=== PATIENT | male | born 1955 | race Caucasian/White ===

== ENCOUNTER → 2020-12-15 | Outpatient (CLI) | payer MEDICARE ==
--- NOTE | 2020-12-15 15:19 | XR ---
EXAMINATION TYPE: XR Hip Complete LT DATE OF EXAM: 12/15/2020 COMPARISON: None HISTORY: Pain TECHNIQUE: 2 view left hip FINDINGS: Femoral head articulates with the acetabulum. No acute fracture or dislocation is evident. IMPRESSION: 1. Normal 2 view left hip
== END | disposition home or self-care (01) ==
LOC: RADXRMAIN 14:59
PROVIDERS: ATTEND Nurse Practitioner Family
DX: M25.552 Pain in left hip (principal)
CPT/HCPCS: 73502

== ENCOUNTER → 2021-09-09 | Outpatient (CLI) | payer MEDICARE ==
[2021-09-09 16:19] LABS: African American GFR (CKD) >90 (>60 ml/min/1.73 sqM); Blood Urea Nitrogen 15 mg/dL (9-20); Non-African American GFR(CKD) 82 (>60 ml/min/1.73 sqM)
--- NOTE | 2021-09-09 16:53 | CT ---
EXAMINATION TYPE: CT chest w con DATE OF EXAM: 09/09/2021 COMPARISON: None HISTORY: h/o aneurysm CT DLP: 895.5 mGycm Automated exposure control for dose reduction was used. TECHNIQUE: CT scan of the chest is performed with IV Contrast, patient injected with 100 mL of Isovue 300. MIP Images are created on CT scanner and reviewed. 3D reconstructed images are created on an independent workstation and reviewed. FINDINGS: The lungs are clear of consolidative or interstitial density. There are 2 left lower lobe calcified g ranulomas one measuring 7.2 mm and the other measuring approximately 8 mm. There are no suspicious shon ng masses or nodules. The great vessels chest are normal and there is no evidence of aneurysm of the thoracic aorta. There is no mediastinal, hilar or axillary adenopathy. There is no pleural effusion, pleural thickening or pneumothorax. Limited scanning through the upper abdomen reveals no gross abnormality. The osseous structures are intact. IMPRESSION: No significant abnormality seen. 2 densely calcified granulomas in the left lower lobe. No thoracic a ortic aneurysm.
== END | disposition home or self-care (01) ==
LOC: RADCTMAIN 15:30
PROVIDERS: ATTEND Family Medicine
DX: J84.10 Pulmonary fibrosis, unspecified (principal)
CPT/HCPCS: 82565; 84520; 71260; 36415; Q9967

== ENCOUNTER → 2023-01-25 | Outpatient (CLI) | payer MEDICARE ==
[2023-01-25 10:45] VITALS: BP 145/90; PULSE 83; RESP 16; TEMP 97.9
--- NOTE | 2023-01-25 14:38 | P.PAINPG ---
PQRS Measure Charge Sheet Comment: HISTORY OF PRESENT ILLNESS: A 67 yr old male as a referral from Dr Tj Gonzalez presents today w severe and chronic LBP x 8 yrs secondary to post laminectomy syndrome for evaluation. Pt states pain level is provoked at 9/10 in intensity, constant, localized in the lumbar spine, sharp in character w shooting pain towards the BL hips. Pain is provoked by lifting. Pain is alleviated by medications (Tramadol, Ibu), hot showers, repositioning and rest. PMH: OA, CHF, Hyperlipidemia, HTN, Gout PSH: Coronary Bypass/CABG, Lumbar surgery w L1-S1 hardware SH: Former tobacco user, No ETOH abuse, No illicit drug use FH: Non contributory All: See list Meds: See list REVIEW OF ORGAN SYSTEMS: CONSTITUTIONAL: No fevers or chills. No recent weight loss. NEUROLOGICAL: + numbness and tingling along the distal extremities. No seizure disorders or headaches. MUSCULOSKELETAL: + pain PSYCHIATRIC: Denies current depression or suicidal thoughts. Physical Examinations : Constitutional : Cooperative , not in acute distress . Neurologic : Cranial nerve II to XII intact. No focal neurological deficits. Psychiatric : alert & oriented x 3. Matching mood & appropriate affect. Judgment & insight intact. Musculoskeletal : Cervical Spine Motor strength in the deltoid and biceps: Normal right side. Normal Left side Motor strength biceps and the wrist extensors: Normal right side . Normal left side Motor strength in the triceps muscle: Normal right side. Normal left side Deep tendon reflexes: Normal at the biceps. Normal at Brachioradialis. Normal at triceps Vertebral body tenderness to deep palpation over Cervical facet loading test: positive bilaterally Spurling test: positive bilaterally Neck distraction test: positive bilaterally To sign: positive bilaterally Lumbar spine Incisional scar intact Motor strength lower extremities ,thigh and legs 5/5 Right side , 5/5 Left side Deep tendon reflexes : Normal Knee Jerk. Normal Ankle Jerk Vertebral body tenderness over L2, L3, L4, L5 Rubio Test positive Lumbar facet Loading Test: positive Right / positive Left Range of motion of the lumbar spine Flexion 30 degrees, extension 10 degrees Straight Leg Raise test: Left/ Right positive at degree Luann test: positive right / positive left. Severe tenderness over the Sacroiliac joint on the Right / Left sides Gaenslen test: positive bilaterally Seated flexion test: positive bilaterally. Sacral spine : Severe tenderness over the Sacroiliac joint: right side / left side Range of motion: Flexion of the lumbar spine <60 degrees Range of motion: Extension of the lumbar spine <20 degrees Gaenslen's Test positive BL Ras's Test positive Luann test: positive right side / left side Thigh Thrust Test Sacral Thrust Test Imaging: MRI non contrast of the lumbar spine from 04/21/21 reviewed Assessment/ Plan : Post laminectomy syndrome Recommendation of medication management. Tramadol 50mg #90 w 1 RF. Use, side effects, adverse reactions and safe storage discussed. Opiate/ narcotic agreement signed 01/25/23. Urged compliance w refraining from ETOH and cannabis with medication. Pt acknowledged understanding. All questions answered. I have spent greater than 30 minutes on patient care today. Dr Valdivia was available by phone for the evaluation of this patient. The time was used to review the medical records including relevant urine studies and Prescription history (MAPs), review of the available imaging, evaluation and examination of the patient, coordination of care with the medical staff and if applicable referring physicians, as well as creation of the medical record PQRS Narrative: Smoking Status Former smoker Home Medications: Ambulatory Orders Aspirin 1 tab PO DAILY 02/06/14 Clopidogrel [Plavix] 1 tab PO DAILY 02/06/14 Isosorbide Mononitrate [Imdur] 1 tab PO DAILY 02/06/14 Indomethacin [Indocin] 50 mg PO DAILY 12/25/14 Orphenadrine [Norflex] 100 mg PO Q12H #10 tablet.er 12/25/14 dexAMETHasone [Decadron] 0.75 mg PO DAILY #12 tablet 12/25/14 traMADol HCL 50 mg PO TID PRN 30 Days #90 tab 01/25/23 Controlled Substance Measures - Controlled Substance Measures Is patient prescribed a controlled substance at discharge?: Yes When asked, does pt state using other controlled substances?: No If prescribed controlled substance>3 days was MAPS reviewed?: Yes If Rx opioid, was Start Talking consent form obtained?: Yes Was information provided regarding opioid addiction?: Yes
== END ==
LOC: PNWHC3 09:29
PROVIDERS: ATTEND Specialist
DX: M48.061 Spinal stenosis, lumbar region without neurogenic claudication (principal); M96.1 Postlaminectomy syndrome, not elsewhere classified; M19.90 Unspecified osteoarthritis, unspecified site; E78.5 Hyperlipidemia, unspecified; M10.9 Gout, unspecified; I11.0 Hypertensive heart disease with heart failure; I50.9 Heart failure, unspecified; Z87.891 Personal history of nicotine dependence; Z79.82 Long term (current) use of aspirin; Z88.8 Allergy status to other drugs, medicaments and biological substances
CPT/HCPCS: 99211

== ENCOUNTER → 2023-03-22 | Outpatient (CLI) | payer MEDICARE ==
[2023-03-22 12:15] VITALS: BP 115/79; PULSE 87; RESP 15; TEMP 98.2
--- NOTE | 2023-03-22 15:34 | P.PAINPG ---
PQRS Measure Charge Sheet Comment: HISTORY OF PRESENT ILLNESS: A 67 yr old male presents today w severe and chronic LBP x 8 yrs secondary to post laminectomy syndrome for medication refills. Pt states pain level is provoked at 9/10 in intensity, constant, localized in the lumbar spine, sharp in character w shooting pain towards the BL hips. Pain is provoked by lifting. Pain is alleviated by medications, hot showers, repositioning and rest. Interventional procedures include Medications include Tramadol, Ibu REVIEW OF ORGAN SYSTEMS: CONSTITUTIONAL: No fevers or chills. No recent weight loss. NEUROLOGICAL: + numbness and tingling along the distal extremities. No seizure disorders or headaches. MUSCULOSKELETAL: + pain PSYCHIATRIC: Denies current depression or suicidal thoughts. Physical Examinations : Constitutional : Cooperative , not in acute distress . Neurologic : Cranial nerve II to XII intact. No focal neurological deficits. Psychiatric : alert & oriented x 3. Matching mood & appropriate affect. Judgment & insight intact. Musculoskeletal : Cervical Spine Motor strength in the deltoid and biceps: Normal right side. Normal Left side Motor strength biceps and the wrist extensors: Normal right side . Normal left side Motor strength in the triceps muscle: Normal right side. Normal left side Deep tendon reflexes: Normal at the biceps. Normal at Brachioradialis. Normal at triceps Vertebral body tenderness to deep palpation over Cervical facet loading test: positive bilaterally Spurling test: positive bilaterally Neck distraction test: positive bilaterally To sign: positive bilaterally Lumbar spine vertical chest wall Incisional scar intact Motor strength lower extremities ,thigh and legs 5/5 Right side , 5/5 Left side Deep tendon reflexes : Normal Knee Jerk. Normal Ankle Jerk Vertebral body tenderness over L2, L3, L4, L5 Rubio Test positive Lumbar facet Loading Test: positive Right / positive Left Range of motion of the lumbar spine Flexion 30 degrees, extension 10 degrees Straight Leg Raise test: Left/ Right positive at degree Luann test: positive right / positive left. Severe tenderness over the Sacroiliac joint on the Right / Left sides Gaenslen test: positive bilaterally Seated flexion test: positive bi laterally. Sacral spine : Severe tenderness over the Sacroiliac joint: right side / left side Range of motion: Flexion of the lumbar spine <60 degrees Range of motion: Extension of the lumbar spine <20 degrees Gaenslen's Test positive BL Ras's Test positive Luann test: positive right side / left side Thigh Thrust Test Sacral Thrust Test Imaging: MRI non contrast of the lumbar spine from 04/21/21 reviewed Assessment/ Plan : Post laminectomy syndrome Recommendation of medication management. Tramadol 50mg #90 w 1 RF. Use, side effects, adverse reactions and safe storage discussed. Opiate/ narcotic ag reement signed 01/25/23. Pt acknowledged understanding. All questions answered. I have spent greater than 30 minutes on patient care today. Dr Valdivia was available by phone for the evaluation of this patient. The time was used to review the medical records including relevant urine studies and Prescription history (MAPs), review of the available imaging, evaluation and examination of the patient, coordination of care with the medical staff and if applicable referring physicians, as well as creation of the medical record PQRS Narrative: Smoking Status Former smoker Home Medications: Ambulatory Orders Aspirin 1 tab PO DAILY 02/06/14 Clopidogrel [Plavix] 1 tab PO DAILY 02/06/14 Isosorbide Mononitrate [Imdur] 1 tab PO DAILY 02/06/14 Indomethacin [Indocin] 50 mg PO DAILY 12/25/14 Orphenadrine [Norflex] 100 mg PO Q12H #10 tablet.er 12/25/14 dexAMETHasone [Decadron] 0.75 mg PO DAILY #12 tablet 12/25/14 traMADol HCL 50 mg PO TID PRN 30 Days #90 tab 03/22/23 Controlled Substance Measures - Controlled Substance Measures Is patient prescribed a controlled substance at discharge?: Yes When asked, does pt state using other controlled substances?: No If prescribed controlled substance>3 days was MAPS reviewed?: Yes
== END ==
LOC: PNWHC3 09:23
PROVIDERS: ATTEND Specialist
DX: M96.1 Postlaminectomy syndrome, not elsewhere classified (principal); Z88.5 Allergy status to narcotic agent; Z87.891 Personal history of nicotine dependence
CPT/HCPCS: 99211

== ENCOUNTER → 2023-05-17 | Outpatient (CLI) | payer MEDICARE ==
[2023-05-17 13:35] VITALS: BP 156/84; PULSE 77; RESP 16
--- NOTE | 2023-05-17 14:23 | P.PAINPG ---
PQRS Measure Charge Sheet Comment: HISTORY OF PRESENT ILLNESS: A 67 yr old male presents today w severe and chronic LBP x 8 yrs secondary to post laminectomy syndrome for medication refills. Pt states pain level is provoked at 9/10 in intensity, constant, localized in the lumbar spine, sharp in character w shooting pain towards the BL hips. Pain is provoked by lifting. Pain is alleviated by medications, hot showers, repositioning and rest. Interventional procedures include Medications include Tramadol, Ibu REVIEW OF ORGAN SYSTEMS: CONSTITUTIONAL: No fevers or chills. No recent weight loss. NEUROLOGICAL: + numbness and tingling along the distal extremities. No seizure disorders or headaches. MUSCULOSKELETAL: + pain PSYCHIATRIC: Denies current depression or suicidal thoughts. Physical Examinations : Constitutional : Cooperative , not in acute distress . Neurologic : Cranial nerve II to XII intact. No focal neurological deficits. Psychiatric : alert & oriented x 3. Matching mood & appropriate affect. Judgment & insight intact. Musculoskeletal : Cervical Spine Motor strength in the deltoid and biceps: Normal right side. Normal Left side Motor strength biceps and the wrist extensors: Normal right side . Normal left side Motor strength in the triceps muscle: Normal right side. Normal left side Deep tendon reflexes: Normal at the biceps. Normal at Brachioradialis. Normal at triceps Vertebral body tenderness to deep palpation over Cervical facet loading test: positive bilaterally Spurling test: positive bilaterally Neck distraction test: positive bilaterally To sign: positive bilaterally Lumbar spine vertical chest wall Incisional scar intact Motor strength lower extremities ,thigh and legs 5/5 Right side , 5/5 Left side Deep tendon reflexes : Normal Knee Jerk. Normal Ankle Jerk Vertebral body tenderness over L2, L3, L4, L5 Rubio Test positive Lumbar facet Loading Test: positive Right / positive Left Range of motion of the lumbar spine Flexion 30 degrees, extension 10 degrees Straight Leg Raise test: Left/ Right positive at degree Luann test: positive right / positive left. Severe tenderness over the Sacroiliac joint on the Right / Left sides Gaenslen test: positive bilaterally Seated flexion test: positive bi laterally. Sacral spine : Severe tenderness over the Sacroiliac joint: right side / left side Range of motion: Flexion of the lumbar spine <60 degrees Range of motion: Extension of the lumbar spine <20 degrees Gaenslen's Test positive BL Ras's Test positive Luann test: positive right side / left side Thigh Thrust Test Sacral Thrust Test Imaging: MRI non contrast of the lumbar spine from 04/21/21 reviewed Assessment/ Plan : Post laminectomy syndrome Recommendation of medication management. Tramadol 50mg #90 w 2 RF. Use, side effects, adverse reactions and safe storage discussed. Opiate/ narcotic ag reement signed 01/25/23. Pt acknowledged understanding. All questions answered. I have spent greater than 30 minutes on patient care today. Dr Valdivia was available by phone for the evaluation of this patient. The time was used to review the medical records including relevant urine studies and Prescription history (MAPs), review of the available imaging, evaluation and examination of the patient, coordination of care with the medical staff and if applicable referring physicians, as well as creation of the medical record PQRS Narrative: Smoking Status Former smoker Hx Alcohol Use (MH) No Home Medications: Ambulatory Orders Aspirin 1 tab PO DAILY 02/06/14 Clopidogrel [Plavix] 1 tab PO DAILY 02/06/14 Isosorbide Mononitrate [Imdur] 1 tab PO DAILY 02/06/14 Indomethacin [Indocin] 50 mg PO DAILY 12/25/14 Orphenadrine [Norflex] 100 mg PO Q12H #10 tablet.er 12/25/14 dexAMETHasone [Decadron] 0.75 mg PO DAILY #12 tablet 12/25/14 traMADol HCL 50 mg PO TID PRN 30 Days #90 tab 05/17/23 Controlled Substance Measures - Controlled Substance Measures Is patient prescribed a controlled substance at discharge?: Yes When asked, does pt state using other controlled substances?: No If prescribed controlled substance>3 days was MAPS reviewed?: Yes
== END ==
LOC: PNWHC3 10:26
PROVIDERS: ATTEND Specialist
DX: M96.1 Postlaminectomy syndrome, not elsewhere classified (principal); Z87.891 Personal history of nicotine dependence; Z79.82 Long term (current) use of aspirin; Z88.8 Allergy status to other drugs, medicaments and biological substances
CPT/HCPCS: 80307; G0463; 99212

== ENCOUNTER → 2023-08-09 | Outpatient (CLI) | payer MEDICARE ==
[2023-08-09 11:43] VITALS: BP 142/82; PULSE 71; RESP 15; TEMP 98.5
--- NOTE | 2023-08-09 15:07 | P.PAINPG ---
Objective - Vital Signs Vital signs: Intake & Output 08/08/23 08/09/23 08/09/23 18:59 06:59 18:59 Weight 122.47 kg PQRS Measure Charge Sheet Comment: HISTORY OF PRESENT ILLNESS: A 68 yr old male presents today w severe and chronic LBP >5 yrs secondary to post laminectomy syndrome for medication refills. Pt states pain level is provoked at 3 /10 in intensity, constant, localized in the lumbar spine, sharp in character w shooting pain occasionally towards the BL hips. Pain is provoked by lifting. Pain is alleviated by medications, hot showers, repositioning and rest. Interventional procedures include Medications include Tramadol, Ibu REVIEW OF ORGAN SYSTEMS: CONSTITUTIONAL: No fevers or chills. No recent weight loss. NEUROLOGICAL: + numbness and tingling along the distal extremities. No seizure disorders or headaches. MUSCULOSKELETAL: + pain PSYCHIATRIC: Denies current depression or suicidal thoughts. Physical Examinations : Constitutional : Cooperative , not in acute distress . Neurologic : Cranial nerve II to XII intact. No focal neurological deficits. Psychiatric : alert & oriented x 3. Matching mood & appropriate affect. Judgment & insight intact. Musculoskeletal : Cervical Spine Motor strength in the deltoid and biceps: Normal right side. Normal Left side Motor strength biceps and the wrist extensors: Normal right side . Normal left side Motor strength in the triceps muscle: Normal right side. Normal left side Deep tendon reflexes: Normal at the biceps. Normal at Brachioradialis. Normal at triceps Vertebral body tenderness to deep palpation over Cervical facet loading test: positive bilaterally Spurling test: positive bilaterally Neck distraction test: positive bilaterally To sign: positive bilaterally Lumbar spine vertical chest wall Incisional scar intact Motor strength lower extremities ,thigh and legs 5/5 Right side , 5/5 Left side Deep tendon reflexes : Normal Knee Jerk. Normal Ankle Jerk Vertebral body tenderness over L2, L3, L4, L5 Rubio Test positive Lumbar facet Loading Test: positive Right / positive Left Range of motion of the lumbar spine Flexion 30 degrees, extension 10 degrees Straight Leg Raise test: Left/ Right positive at degree Luann test: positive right / positive left. Severe tenderness over the Sacroiliac joint on the Right / Left sides Gaenslen test: positive bilaterally Seated flexion test: positive bilaterally. Sacral spine : Severe tenderness over the Sacroiliac joint: right side / left side Range of motion: Flexion of the lumbar spine <60 degrees Range of motion: Extension of the lumbar spine <20 degrees Gaenslen's Test positive BL Ras's Test positive Luann test: positive right side / left side Thigh Thrust Test Sacral Thrust Test Imaging: MRI non contrast of the lumbar spine from 04/21/21 reviewed Assessment/ Plan : Post laminectomy syndrome Recommendation of medication management. Tramadol 50mg #90 w 2 RF. Use, side effects, adverse reactions and safe storage discussed. Opiate/ narcotic agreement signed 01/25/23. Pt acknowledged understanding. All questions answered. I have spent greater than 30 minutes on patient care today. Dr Valdivia was available by phone for the evaluation of this patient. The time was used to review the medical records including relevant urine studies and Prescription history (MAPs), review of the available imaging, evaluation and examination of the patient, coordination of care with the medical staff and if applicable referring physicians, as well as creation of the medical record PQRS Narrative: Smoking Status Former smoker Hx Alcohol Use (MH) No Home Medications: Ambulatory Orders Aspirin 1 tab PO DAILY 02/06/14 Clopidogrel [Plavix] 1 tab PO DAILY 02/06/14 Isosorbide Mononitrate [Imdur] 1 tab PO DAILY 02/06/14 Indomethacin [Indocin] 50 mg PO DAILY 12/25/14 Orphenadrine [Norflex] 100 mg PO Q12H #10 tablet.er 12/25/14 dexAMETHasone [Decadron] 0.75 mg PO DAILY #12 tablet 12/25/14 traMADol HCL 50 mg PO TID PRN 30 Days #90 tab 05/17/23 Controlled Substance Measures - Controlled Substance Measures Is patient prescribed a controlled substance at discharge?: Yes When asked, does pt state using other controlled substances?: No If prescribed controlled substance>3 days was MAPS reviewed?: Yes
== END ==
LOC: PNWHC3 10:30
PROVIDERS: ATTEND Specialist
DX: M47.816 Spondylosis without myelopathy or radiculopathy, lumbar region (principal); M96.1 Postlaminectomy syndrome, not elsewhere classified; G89.29 Other chronic pain; M54.50 Low back pain, unspecified; Z87.891 Personal history of nicotine dependence; Z88.5 Allergy status to narcotic agent
CPT/HCPCS: 99211

== ENCOUNTER → 2023-08-22 | Outpatient (CLI) | payer MEDICARE ==
--- NOTE | 2023-08-27 14:25 | CT ---
EXAMINATION TYPE: CT brain wo con CT DLP: 1064.3 mGycm, Automated exposure control for dose reduction was used. DATE OF EXAM: 08/22/2023 12:11 PM COMPARISON: . CLINICAL INDICATION:Male, 68 years old with history of R41.3 OTHER AMNESIA, changes in memory TECHNIQUE: Brain: Axial CT images of the brain were obtained with coronal and sagittal reformats created and rev iewed. Contrast used: None. Oral contrast used: None. FINDINGS: Brain: Extra-axial spaces: No abnormal extra-axial fluid collections. Ventricular system: Ventricles and sulci are prominent consistent with age-related involution. Cerebral parenchyma: No acute intraparenchymal hemorrhage or mass effect. The patrick-white junction is well differentiated. Cerebellum: Unremarkable. Mass effect: No evidence of midline shift. Intracranial vasculature: unremarkable Soft tissues: Normal. Calvarium/osseous structures: No depressed skull fracture. Paranasal sinuses and mastoid air cells: Mild scattered paranasal sinus disease. Visualized orbits: Orbital contents are intact. IMPRESSION: No acute intracranial process. Mild age-related involution
== END | disposition home or self-care (01) ==
LOC: RADCTMAIN 11:45
PROVIDERS: ATTEND Family Medicine
DX: R41.81 Age-related cognitive decline (principal); R41.3 Other amnesia
CPT/HCPCS: 70450

== ENCOUNTER → 2023-09-17 | Outpatient (CLI) | payer MEDICARE ==
--- NOTE | 2023-09-17 11:23 | XR ---
EXAMINATION TYPE: XR shoulder limited LT DATE OF EXAM: 09/17/2023 10:26 AM CLINICAL INDICATION:Male, 68 years old with history of M19.079 R shoulder pain; [facility] COMPARISON: None. TECHNIQUE: XR shoulder limited LT; examined in AP, internally rotated and scapular Y projections. FINDINGS: No evidence of acute osseous pathology, joint dislocation, or soft tissue swelling. The remaining po rtions of the visualized chest are unremarkable. IMPRESSION: No acute osseous pathology.
[2023-09-17 13:26] VITALS: BP 158/76; PULSE 63; RESP 16; TEMP 96.9
--- NOTE | 2023-09-17 14:40 | P.PAINPG ---
PQRS Measure Charge Sheet Comment: HISTORY OF PRESENT ILLNESS: A 68 yr old male w at side presents today w severe and chronic L shoulder pain, LBP >5 yrs secondary to L shoulder DJD, post laminectomy syndrome for medication refills. Pt states pain level is provoked at 8 /10 in intensity, constant, localized in the L shoulder, sharp in character without shooting pain. Pain is provoked by lifting. Pain is alleviated by physician guided home exercise regimen 5 times weekly since May 2023, medications, hot showers, repositioning and rest. Interventional procedures include R shoulder intra articular injections from Dr Balderrama Medications include Tramadol, Ibu REVIEW OF ORGAN SYSTEMS: CONSTITUTIONAL: No fevers or chills. No recent weight loss. NEUROLOGICAL: + numbness and tingling along the distal extremities. No seizure disorders or headaches. MUSCULOSKELETAL: + pain PSYCHIATRIC: Denies current depression or suicidal thoughts. Physical Examinations : Constitutional : Cooperative , not in acute distress . Neurologic : Cranial nerve II to XII intact. No focal neurological deficits. Psychiatric : alert & oriented x 3. Matching mood & appropriate affect. Judgment & insight intact. Musculoskeletal : Cervical Spine +L AC/ GH joint line TTP, limited ROM due to pain Motor strength in the deltoid and biceps: Normal right side. Normal Left side Motor strength biceps and the wrist extensors: Normal right side . Normal left side Motor strength in the triceps muscle: Normal right side. Normal left side Deep tendon reflexes: Normal at the biceps. Normal at Brachioradialis. Normal at triceps Vertebral body tenderness to deep palpation over Cervical facet loading test: positive bilaterally Spurling test: positive bilaterally Neck distraction test: positive bilaterally To sign: positive bilaterally Lumbar spine vertical chest wall Incisional scar intact Motor strength lower extremities ,thigh and legs 5/5 Right side , 5/5 Left side Deep tendon reflexes : Normal Knee Jerk. Normal Ankle Jerk Vertebral body tenderness over L2, L3, L4, L5 Rubio Test positive Lumbar facet Loading Test: positive Right / positive Left Range of motion of the lumbar spine Flexion 30 degrees, extension 10 degrees Straight Leg Raise test: Left/ Right positive at degree Luann test: positive right / positive left. Severe tenderness over the Sacroiliac joint on the Right / Left sides Gaenslen test: positive bilaterally Seated flexion test: positive nallely aterally. Sacral spine : Severe tenderness over the Sacroiliac joint: right side / left side Range of motion: Flexion of the lumbar spine <60 degrees Range of motion: Extension of the lumbar spine <20 degrees Gaenslen's Test positive BL Ras's Test positive Luann test: positive right side / left side Thigh Thrust Test Sacral Thrust Test Imaging: MRI non contrast of the lumbar spine from 04/21/21 reviewed Assessment/ Plan : Post laminectomy syndrome, R shoulder DJD Recommendation of x ray L shoulder 19.019 and medication management. May need additional imaging if indicated. Tramadol 50mg #90 w 2 RF. Use, side effects, adverse reactions and safe storage discussed. Opiate/ narcotic agreement signed 01/25/23. Pt acknowledged understanding. All questions answered. I have spent greater than 30 minutes on patient care today. Dr Valdivia was available by phone for the evaluation of this patient. The time was used to review the medical records including relevant urine studies and Prescription history (MAPs), review of the available imaging, evaluation and examination of the patient, coordination of care with the medical staff and if applicable referring physicians, as well as creation of the medical record PQRS Narrative: Smoking Status Former smoker Hx Alcohol Use (MH) No Home Medications: Ambulatory Orders Aspirin 1 tab PO DAILY 02/06/14 Clopidogrel [Plavix] 1 tab PO DAILY 02/06/14 Isosorbide Mononitrate [Imdur] 1 tab PO DAILY 02/06/14 Indomethacin [Indocin] 50 mg PO DAILY 12/25/14 Orphenadrine [Norflex] 100 mg PO Q12H #10 tablet.er 12/25/14 dexAMETHasone [Decadron] 0.75 mg PO DAILY #12 tablet 12/25/14 traMADol HCL 50 mg PO TID PRN 30 Days #90 tab 09/17/23 Controlled Substance Measures - Controlled Substance Measures Is patient prescribed a controlled substance at discharge?: Yes When asked, does pt state using other controlled substances?: No If prescribed controlled substance>3 days was MAPS reviewed?: Yes
== END ==
LOC: PNWHC3 08:39
PROVIDERS: ATTEND Specialist
DX: M19.011 Primary osteoarthritis, right shoulder (principal); M19.079 Primary osteoarthritis, unspecified ankle and foot; M96.1 Postlaminectomy syndrome, not elsewhere classified; Z87.891 Personal history of nicotine dependence; Z88.8 Allergy status to other drugs, medicaments and biological substances
CPT/HCPCS: 73020; G0463; 99211

== ENCOUNTER → 2023-10-29 | Outpatient (CLI) | payer MEDICARE ==
[2023-10-29 13:16] VITALS: BP 119/70; PULSE 71; RESP 16; TEMP 97.9
--- NOTE | 2023-10-29 15:11 | P.PAINPG ---
PQRS Measure Charge Sheet Comment: HISTORY OF PRESENT ILLNESS: A 68 yr old male w at side presents today w severe and chronic L shoulder pain, LBP >5 yrs secondary to L shoulder DJD, post laminectomy syndrome for medication refills. Pt states pain level is provoked at 8 /10 in intensity, constant, localized in the L shoulder, sharp in character without shooting pain. Pain is provoked by lifting. Pain is alleviated by physician guided home exercise regimen 5 times weekly since May 2023, medications, hot showers, repositioning and rest. Interventional procedures include R shoulder intra articular injections from Dr Balderrama Medications include Tramadol, Ibu REVIEW OF ORGAN SYSTEMS: CONSTITUTIONAL: No fevers or chills. No recent weight loss. NEUROLOGICAL: + numbness and tingling along the distal extremities. No seizure disorders or headaches. MUSCULOSKELETAL: + pain PSYCHIATRIC: Denies current depression or suicidal thoughts. Physical Examinations : Constitutional : Cooperative , not in acute distress . Neurologic : Cranial nerve II to XII intact. No focal neurological deficits. Psychiatric : alert & oriented x 3. Matching mood & appropriate affect. Judgment & insight intact. Musculoskeletal : Cervical Spine +L AC/ GH joint line TTP, limited ROM due to pain Motor strength in the deltoid and biceps: Normal right side. Normal Left side Motor strength biceps and the wrist extensors: Normal right side . Normal left side Motor strength in the triceps muscle: Normal right side. Normal left side Deep tendon reflexes: Normal at the biceps. Normal at Brachioradialis. Normal at triceps Vertebral body tenderness to deep palpation over Cervical facet loading test: positive bilaterally Spurling test: positive bilaterally Neck distraction test: positive bilaterally To sign: positive bilaterally Lumbar spine vertical chest wall Incisional scar intact Motor strength lower extremities ,thigh and legs 5/5 Right side , 5/5 Left side Deep tendon reflexes : Normal Knee Jerk. Normal Ankle Jerk Vertebral body tenderness over L2, L3, L4, L5 Rubio Test positive Lumbar facet Loading Test: positive Right / positive Left Range of motion of the lumbar spine Flexion 30 degrees, extension 10 degrees Straight Leg Raise test: Left/ Right positive at degree Luann test: positive right / positive left. Severe tenderness over the Sacroiliac joint on the Right / Left sides Gaenslen test: positive bilaterally Seated flexion test: positive nallely aterally. Sacral spine : Severe tenderness over the Sacroiliac joint: right side / left side Range of motion: Flexion of the lumbar spine <60 degrees Range of motion: Extension of the lumbar spine <20 degrees Gaenslen's Test positive BL Ras's Test positive Luann test: positive right side / left side Thigh Thrust Test Sacral Thrust Test Imaging: MRI non contrast of the lumbar spine from 04/21/21 reviewed X ray L shoulder from 09/17/[address] non contrast of L shoulder pending Assessment/ Plan : Post laminectomy syndrome, R shoulder DJD Recommendation of CT non contrast L shoulder 19.019 and medication management. Tramadol 50mg #90 w 2 RF. Use, side effects, adverse reactions and safe storage discussed. Opiate/ narcotic agreement signed 01/25/23. Pt acknowledged understanding. All questions answered. I have spent greater than 30 minutes on patient care today. Dr Valdivia was available by phone for the evaluation of this patient. The time was used to review the medical records including relevant urine studies and Prescription history (MAPs), review of the available imaging, evaluation and examination of the patient, coordination of care with the medical staff and if applicable referring physicians, as well as creation of the medical record - Pain Location Back Non-Pharmacological Interventions: Position/Reposition Pharmacological Interventions: Discuss Pain Med Options, PRN Medication, Scheduled Medication PQRS Narrative: Smoking Status Former smoker Hx Alcohol Use (MH) No Home Medications: Ambulatory Orders Aspirin 1 tab PO DAILY 02/06/14 Clopidogrel [Plavix] 1 tab PO DAILY 02/06/14 Isosorbide Mononitrate [Imdur] 1 tab PO DAILY 02/06/14 Colchicine 0.6 mg PO DAILY 10/29/23 Glimepiride 2 mg PO DAILY 10/29/23 Memantine [Namenda] 5 mg PO HS 10/29/23 lisinopriL [Zestril] 5 mg PO DAILY 10/29/23 metFORMIN HCL 1,000 mg PO BID 10/29/23 traMADol HCL 50 mg PO TID PRN 30 Days #90 tab 10/29/23 Controlled Substance Measures - Controlled Substance Measures Is patient prescribed a controlled substance at discharge?: Yes When asked, does pt state using other controlled substances?: Yes If prescribed controlled substance>3 days was MAPS reviewed?: Prescribed <3 Days
== END ==
LOC: PNWHC3 12:21
PROVIDERS: ATTEND Specialist
DX: M96.1 Postlaminectomy syndrome, not elsewhere classified (principal); M19.011 Primary osteoarthritis, right shoulder; Z87.891 Personal history of nicotine dependence; Z88.8 Allergy status to other drugs, medicaments and biological substances
CPT/HCPCS: 99211

== ENCOUNTER → 2023-11-26 | Outpatient (CLI) | payer MEDICARE ==
--- NOTE | 2024-01-14 15:18 | CT ---
Patient: Luis Mcdonnell A Ordering Physician: Unknown, Unknown ID: [id number] Phone, Pager: Phone: N/A Pager: N/A : 1955 Age/Gender: 68Y, M Primary Location: N/A Procedure: CT shoulder LT wo con [facility] Date: 11/26/2023 12:31:00 PM EXAMINATION TYPE: CT shoulder LT wo con CT DLP: 786 mGycm, Automated exposure control for dose reduction was used. DATE OF EXAM: 12/04/2023 11:12 AM COMPARISON: 09/17/2023. CLINICAL INDICATION: Pain, pulmonary osteoporosis. TECHNIQUE: Axial images were obtained of the CT shoulder LT wo con, Additional coronal and sagittal r eformatted images and soft tissue and bone window were obtained for review. 3-D reconstruction was cr eated on a separate workstation. Contrast used: mL of , (None if empty) Oral contrast used: (None if empty) FINDINGS: Mild osteophyte formation of the glenoid, distal clavicle and to lesser extent the humeral head and acromion. There is mild joint space narrowing. Calcified joint body within the AC joint just inferior to the distal clavicle measuring 7 x 3 mm. There is no evidence of fracture, subluxation, o r dislocation. No significant soft tissue swelling or joint effusion is identified. No focal muscula r atrophy or edema is identified. No radiopaque foreign body identified. IMPRESSION: 1. No evidence of fracture. 2. Mild left, clavicular and glenohumeral osteoarthrosis. Calcified joint body under the distal clav icle.
== END | disposition home or self-care (01) ==
LOC: RADCTMAIN 12:00
PROVIDERS: ATTEND Specialist
DX: M19.012 Primary osteoarthritis, left shoulder (principal); M81.0 Age-related osteoporosis without current pathological fracture

== ENCOUNTER → 2024-01-21 | Outpatient (CLI) | payer MEDICARE ==
[2024-01-21 12:47] VITALS: BP 149/77; PULSE 66; RESP 18
[2024-01-21 13:33] VITALS: TEMP 99.6
--- NOTE | 2024-01-21 15:07 | P.PAINPG ---
PQRS Measure Charge Sheet Comment: HISTORY OF PRESENT ILLNESS: A 68 yr old male w at side presents today w severe and chronic L shoulder pain, LBP >5 yrs secondary to L shoulder DJD, post laminectomy syndrome for medication refills. Pt states pain level is provoked at 8.5 /10 in intensity, constant, localized in the L shoulder, sharp in character without shooting pain. Pain is provoked by lifting. Pain is alleviated by physician guided home exercise regimen 5 times weekly since May 2023, medications, hot showers, repositioning and rest. CT L shoulder results reviewed. Interventional procedures include R shoulder intra articular injections from Dr Balderrama Medications include Tramadol, Ibu REVIEW OF ORGAN SYSTEMS: CONSTITUTIONAL: No fevers or chills. No recent weight loss. NEUROLOGICAL: + numbness and tingling along the distal extremities. No seizure disorders or headaches. MUSCULOSKELETAL: + pain PSYCHIATRIC: Denies current depression or suicidal thoughts. Physical Examinations : Constitutional : Cooperative , not in acute distress . Neurologic : Cranial nerve II to XII intact. No focal neurological deficits. Psychiatric : alert & oriented x 3. Matching mood & appropriate affect. Judgment & insight intact. Musculoskeletal : Cervical Spine +L AC/ GH joint line TTP, limited ROM due to pain Motor strength in the deltoid and biceps: Normal right side. Normal Left side Motor strength biceps and the wrist extensors: Normal right side . Normal left side Motor strength in the triceps muscle: Normal right side. Normal left side Deep tendon reflexes: Normal at the biceps. Normal at Brachioradialis. Normal at triceps Vertebral body tenderness to deep palpation over Cervical facet loading test: positive bilaterally Spurling test: positive bilaterally Neck distraction test: positive bilaterally To sign: positive bilaterally Lumbar spine vertical chest wall Incisional scar intact Motor strength lower extremities ,thigh and legs 5/5 Right side , 5/5 Left side Deep tendon reflexes : Normal Knee Jerk. Normal Ankle Jerk Vertebral body tenderness over L2, L3, L4, L5 Rubio Test positive Lumbar facet Loading Test: positive Right / positive Left Range of motion of the lumbar spine Flexion 30 degrees, extension 10 degrees Straight Leg Raise test: Left/ Right positive at degree Luann test: positive right / positive left. Severe tenderness over the Sacroiliac joint on the Right / Left sides Gaenslen test: positive bilaterally Seated flexion test: positive bilaterally. Sacral spine : Severe tenderness over the Sacroiliac joint: right side / left side Range of motion: Flexion of the lumbar spine <60 degrees Range of motion: Extension of the lumbar spine <20 degrees Gaenslen's Test positive BL Ras's Test positive Luann test: positive right side / left side Thigh Thrust Test Sacral Thrust Test Imaging: MRI non contrast of the lumbar spine from 04/21/21 reviewed X ray L shoulder from 09/17/[address] non contrast of L shoulder reviewed Assessment/ Plan : Post laminectomy syndrome, R shoulder DJD Recommendation of L intra articular L shoulder injection #1 19.019 and medication management. Risks, benefits of procedure discussed and pt verbalized understanding. Tramadol 50mg #90 w 2 RF. Use, side effects, adverse reactions and safe storage discussed. Opiate/ narcotic agreement signed 01/25/23. UDS from 05/17/23 reviewed and consistent. UDS collected 01/21/24. Pt acknowledged understanding. All questions answered. I have spent greater than 30 minutes on patient care today. Dr Valdivia was available by phone for the evaluation of this patient. The time was used to review the medical records including relevant urine studies and Prescription hi story (MAPs), review of the available imaging, evaluation and examination of the patient, coordination of care with the medical staff and if applicable referring physicians, as well as creation of the medical record - Pain Location Lower Back Pharmacological Interventions: Epidural PQRS Narrative: Smoking Status Former smoker Hx Alcohol Use (MH) No Home Medications: Ambulatory Orders Aspirin 1 tab PO DAILY 02/06/14 Clopidogrel [Plavix] 1 tab PO DAILY 02/06/14 Isosorbide Mononitrate [Imdur] 1 tab PO DAILY 02/06/14 Colchicine 0.6 mg PO DAILY 10/29/23 Glimepiride 2 mg PO DAILY 10/29/23 Memantine [Namenda] 5 mg PO HS 10/29/23 lisinopriL [Zestril] 5 mg PO DAILY 10/29/23 metFORMIN HCL 1,000 mg PO BID 10/29/23 traMADol HCL 50 mg PO TID PRN 30 Days #90 tab 01/21/24 Controlled Substance Measures - Controlled Substance Measures Is patient prescribed a controlled substance at discharge?: Yes When asked, does pt state using other controlled substances?: No If prescribed controlled substance>3 days was MAPS reviewed?: Yes
== END | disposition home or self-care (01) ==
LOC: PNWHC3 12:28
PROVIDERS: ATTEND Specialist
DX: M54.50 Low back pain, unspecified
CPT/HCPCS: 99211

== ENCOUNTER 2024-02-07 11:11 | Day surgery (SDC) | payer MEDICARE ==
[2024-02-07] MEDS ORDERED: LACTATED RINGERS 1,000 ML IV SCH (11:25)
[2024-02-07 11:38] VITALS: TEMP 97
[2024-02-07 11:38] LABS: Glucose,Whole Blood 238 mg/dL (70-110)
[2024-02-07] MEDS ORDERED: methylPREDNISolone ACETATE 80 MG/ML 1 ML VIAL ONE (12:29)
[2024-02-07] MEDS ORDERED: ROPIVACAINE 5MG/ML 20ML VIAL ONE (12:29)
[2024-02-07 12:58] VITALS: RESP 16
--- NOTE | 2024-02-07 13:04 | P.PCN ---
Description of Procedure: Preprocedure diagnosis. Shoulder joint osteoarthritis. Postprocedure diagnosis. As above. Procedure done. left shoulder glenohumeral intra-articular joint injection with local anesthetics and steroid under ultrasound guidance. Anesthesia. 1% lidocaine subcutaneously 3 cc. Blood loss. None. Indication. Discussed with the patient the procedure, alternatives, and possible complications which may include infection, bleeding, nerve damage, aggravation of pain. Patient understands and all questions were answered. Procedure note. Getting consent patient in OR in sitting position. Ipsilateral hand was put on anterolateral shoulder. Scapular spine was identified. Acromion was identified. Ultrasound probe was placed low the scapular spine parallel and just below acromion. Infraspinatus muscle, head of the humerus, glenoid was identified. After injecting 3 cc of 1% lidocaine subcutaneously, junk needle attached to a syringe was introduced from lateral to medial in plane technique. When the needle was in the intra-articular space, after negative aspiration 8 cc solution was injected which consists of 7 cc of 0.5 ropivacaine mixed with 1 cc of 80 mg Depo-Medrol. Needle was taken out and Band-Aid was placed. Disposition. And was transferred to postsurgical area. No complication. Discharged home in stable condition.
[2024-02-07 13:08] LABS: Glucose,Whole Blood 230 mg/dL (70-110)
[2024-02-07 13:10] VITALS: BP 114/71; PULSE 69
== END 2024-02-07 13:41 | disposition home or self-care (01) ==
LOC: ORPAIN 11:11
PROVIDERS: ATTEND Pain Medicine Interventional Pain Medicine
CPT/HCPCS: 20610

== ENCOUNTER → 2024-04-07 | Outpatient (CLI) | payer MEDICARE ==
[2024-04-07 11:33] VITALS: BP 134/89; PULSE 74; RESP 16; TEMP 96.9
--- NOTE | 2024-04-07 14:54 | P.PAINPG ---
PQRS Measure Charge Sheet Comment: HISTORY OF PRESENT ILLNESS: A 68 yr old male w at side presents today w severe and chronic L shoulder pain, LBP >5 yrs secondary to L shoulder DJD, post laminectomy syndrome for medication refills and evaluation s/p L GH joint injection #1. Pt states he experienced 90 % pain relief x 6 wks s/p procedure. Pt states pain level is provoked at 2-8 /10 in intensity, intermittent, localized in the L shoulder, sharp in character without shooting pain. Pain is provoked by lifting. Pain is alleviated by physician guided home exercise regimen 5 times weekly since May 2023, medications, hot showers, repositioning and rest. CT L shoulder results reviewed. Interventional procedures include R shoulder intra articular injections from Dr Balderrama, L GH joint x1 (Jan 2024) Medications include Tramadol, Ibu REVIEW OF ORGAN SYSTEMS: CONSTITUTIONAL: No fevers or chills. No recent weight los s. NEUROLOGICAL: + numbness and tingling along the distal extremities. No seizure disorders or headaches. MUSCULOSKELETAL: + pain PSYCHIATRIC: Denies current depression or suicidal thoughts. Physical Examinations : Constitutional : Cooperative , not in acute distress . Neurologic : Cranial nerve II to XII intact. No focal neurological deficits. Psychiatric : alert & oriented x 3. Matching mood & appropriate affect. Judgment & insight intact. Musculoskeletal : Cervical Spine +L AC< GH joint line TTP, limited ROM due to pain Motor strength in the deltoid and biceps: Normal right side. Normal Left side Motor strength biceps and the wrist extensors: Normal right side . Normal left side Motor strength in the triceps muscle: Normal right side. Normal left side Deep tendon reflexes: Normal at the biceps. Normal at Brachioradialis. Normal at triceps Vertebral body tenderness to deep palpation over Cervical facet loading test: positive bilaterally Spurling test: positive bilaterally Neck distraction test: positive bilaterally To sign: positive bilaterally Lumbar spine vertical chest wall Incisional scar intact Motor strength lower extremities ,thigh and legs 5/5 Right side , 5/5 Left side Deep tendon reflexes : Normal Knee Jerk. Normal Ankle Jerk Vertebral body tenderness over L2, L3, L4, L5 Rubio Test positive Lumbar facet Loading Test: positive Right / positive Left Range of motion of the lumbar spine Flexion 30 degrees, extension 10 degrees Straight Leg Raise test: Left/ Right positive at degree Luann test: positive right / positive left. Severe tenderness over the Sacroiliac joint on the Right / Left sides Gaenslen test: positive bilaterally Seated flexion test: positive bilaterally. Sacral spine : Severe tenderness over the Sacroiliac joint: right side / left side Range of motion: Flexion of the lumbar spine <60 degrees Range of motion: Extension of the lumbar spine <20 degrees Gaenslen's Test positive BL Ras's Test positive Luann test: positive right side / left side Thigh Thrust Test Sacral Thrust Test Imaging: MRI non contrast of the lumbar spine from 04/21/21 reviewed X ray L shoulder from 09/17/[address] non contrast of L shoulder reviewed Assessment/ Plan : Post laminectomy syndrome, R shoulder DJD Recommendation of medication management and L GH joint injection #2. Risks, benefits of procedure discussed and pt verbalized understanding. Tramadol 50mg #90 w 2 RF. Use, side effects, adverse reactions and safe storage discussed. Opiate/ narcotic agreement signed 01/25/23. UDS from 01/21/24 reviewed and consistent. Pt acknowledged understanding. All questions answered. I have spent greater than 30 minutes on patient care today. Dr Valdivia was available by phone for the evaluation of this patient. The time was used to review the medical records including relevant urine studies and Prescription history (MAPs), review of the available imaging, evaluation and examination of the patient, coordination of care with the medical staff and if applicable referring physicians, as well as creation of the medical record PQRS Narrative: Smoking Status Former smoker Narcotic Agreement Date Signed 01/21/24 Hx Alcohol Use (MH) No Home Medications: Ambulatory Orders Aspirin 1 tab PO DAILY 02/06/14 Clopidogrel [Plavix] 1 tab PO DAILY 02/06/14 Isosorbide Mononitrate [Imdur] 1 tab PO DAILY 02/06/14 Colchicine 0.6 mg PO DAILY 10/29/23 Glimepiride 2 mg PO DAILY 10/29/23 metFORMIN HCL 1,000 mg PO BID 10/29/23 Losartan [Cozaar] 25 mg PO DAILY 02/05/24 Memantine [Namenda] 10 mg PO HS 02/05/24 traMADol HCL 50 mg PO TID PRN 30 Days #90 tab 04/07/24 Controlled Substance Measures - Controlled Substance Measures Is patient prescribed a controlled substance at discharge?: Yes When asked, does pt state using other controlled substances?: Yes If prescribed controlled substance>3 days was MAPS reviewed?: Yes
== END ==
LOC: PNWHC3 11:06
PROVIDERS: ATTEND Specialist
DX: M96.1 Postlaminectomy syndrome, not elsewhere classified (principal); M19.011 Primary osteoarthritis, right shoulder; Z87.891 Personal history of nicotine dependence; Z88.8 Allergy status to other drugs, medicaments and biological substances
CPT/HCPCS: 99211

== ENCOUNTER → 2024-05-06 | Day surgery (SDC) | payer MEDICARE ==
[2024-05-02 10:48] VITALS: BMI 41.3
[~2024-05-06] MED LIST: LACTATED RINGERS 1,000 ML IV SCH
[2024-05-06 12:42] VITALS: BP 140/70; PULSE 70; RESP 16; TEMP 97.5
[2024-05-06 12:45] LABS: Glucose,Whole Blood 352 mg/dL (70-110)
[2024-05-06 12:46] LABS: Glucose,Whole Blood 344 mg/dL (70-110)
[2024-05-06] MEDS: INSULIN ASPART (NovoLOG) 100 UNIT/ML VIAL SQ ONE (12:55)
== END ==
LOC: ORPAIN 12:08
PROVIDERS: ATTEND Pain Medicine Interventional Pain Medicine
DX: M19.012 Primary osteoarthritis, left shoulder (principal); E11.9 Type 2 diabetes mellitus without complications; Z79.82 Long term (current) use of aspirin; Z79.84 Long term (current) use of oral hypoglycemic drugs